=== PATIENT | female | born 1995 ===

== ENCOUNTER 2020-09-15 20:24 | Emergency (ER) | payer BC, SELFPAY ==
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
[2020-09-15] MEDS ORDERED: LIDOCAINE 1% W/EPI 1:100,000 MDV 20 ML VIAL ONE (21:37)
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
[2020-09-15 23:51] VITALS: TEMP 99
[2020-09-15 23:52] VITALS: BP 137/97; O2SAT 98
--- NOTE | 2020-09-16 07:53 | RAD REPORT ---
EXAM DESCRIPTION: RAD - Shoulder Right 2 View - 09/15/2020 9:24 pm CLINICAL HISTORY: Right shoulder pain FINDINGS: No fracture is seen. Borderline widening of the AC joint may indicate a mild sprain of the ligament
== END 2020-09-15 22:23 | disposition home or self-care (01) ==
LOC: ER 20:24
DX: S00.81XA Abrasion of other part of head, initial encounter (principal); V89.2XXA Person injured in unspecified motor-vehicle accident, traffic, initial encounter
CPT/HCPCS: 70450; 72125; 99284